=== PATIENT | male | born 2000 | race Two or more races ===

== ENCOUNTER 2020-02-10 22:06 | Emergency (ER) | payer BC, OTHER ==
[~2020-02-10] VITALS: Ht 162.6 cm; Wt 63.5 kg
[2020-02-10 22:09] VITALS: BP 124/62
--- NOTE | 2020-02-10 22:27 | NUR ---
COVID SWAB COLLECTEED AND SENT TO LAB.
== END 2020-02-10 22:30 | disposition home or self-care (01) ==
LOC: ER 22:06
DX: R09.89 Other specified symptoms and signs involving the circulatory and respiratory systems (principal); R53.83 Other fatigue; Z20.828 Contact with and (suspected) exposure to other viral communicable diseases
CPT/HCPCS: 99283; C9803; U0003

== ENCOUNTER 2020-03-14 18:33 | Emergency (ER) | payer OTHER ==
[~2020-03-14] VITALS: Ht 162.6 cm; Wt 81.6 kg
[2020-03-14 18:46] VITALS: BP 127/81
== END 2020-03-14 19:42 | disposition home or self-care (01) ==
LOC: ER 18:41
DX: R05 Cough (principal); R43.8 Other disturbances of smell and taste; Z20.822 Contact with and (suspected) exposure to COVID-19; J45.909 Unspecified asthma, uncomplicated
CPT/HCPCS: 99283; C9803; U0003